=== PATIENT | female | born 1975 | race Two or more races ===

== ENCOUNTER 2020-08-17 07:50 | Day surgery (SDC) | payer OTHER ==
[~2020-08-17 07:50] MED LIST: ABANEU-SL TABL1 EACH SL; CITRATE OF MAG296 ML; INTEGRA F CAPS1 EACH PO; INTESTINEX680 M1 PO; MAXFE CAPLET1 EACH PO; PERCOCET 5-3251 EACH PO; PRILOSEC OTC20 MG PO; PROTONIX40 MG PO
[2020-08-17] MEDS ORDERED: PERCOCET 5-3251 EACH PO (10:06)
== END 2020-08-17 12:25 | disposition home or self-care (01) ==
LOC: CIR.AMB 07:50
PROVIDERS: ATTEND Surgery
DX: C18.5 Malignant neoplasm of splenic flexure (principal); Z20.828 Contact with and (suspected) exposure to other viral communicable diseases
CPT/HCPCS: 36561; C1751

== ENCOUNTER 2020-09-01 21:20 | Emergency (ER) | payer OTHER ==
[~2020-09-01] VITALS: Ht 157.5 cm; Wt 70.3 kg
[2020-09-01] MEDS ORDERED: MYLANTA (22:08)
[2020-09-01] MEDS ORDERED: GAS X (22:08)
[2020-09-02] MEDS ORDERED: DICY20TA PO (05:11)
[2020-09-02] MEDS ORDERED: FAMOTIDINE20 MG PO (05:11)
== END 2020-09-02 05:22 | disposition home or self-care (01) ==
LOC: ER 21:20
DX: K29.70 Gastritis, unspecified, without bleeding (principal); R10.13 Epigastric pain

== ENCOUNTER 2020-09-19 19:21 | Emergency (ER) | payer OTHER ==
[~2020-09-19] VITALS: Ht 157.5 cm; Wt 68.9 kg
[~2020-09-19 19:21] MED LIST changes: +DICY20TA PO; +FAMOTIDINE20 MG PO; +GAS X; +MYLANTA
[2020-09-19] MEDS ORDERED: TYLENOR (19:35)
== END 2020-09-20 00:26 | disposition home or self-care (01) ==
LOC: ER 19:21
DX: R22.1 Localized swelling, mass and lump, neck (principal); M54.2 Cervicalgia
CPT/HCPCS: 70491; Q9965

== ENCOUNTER 2020-09-21 07:23 | Outpatient (CLI) | payer OTHER ==
[~2020-09-21 07:23] MED LIST changes: +TYLENOR
[2020-09-22] MEDS ORDERED: ELIQUIS5 MG (00:07)
== END 2020-09-21 07:35 | disposition home or self-care (01) ==
LOC: NUCLEAR 07:23
PROVIDERS: ATTEND Surgery
DX: I87.2 Venous insufficiency (chronic) (peripheral) (principal); M79.622 Pain in left upper arm

== ENCOUNTER 2020-09-21 23:31 | Inpatient (IN) | payer OTHER ==
[~2020-09-21] VITALS: Ht 157.5 cm; Wt 70.3 kg
--- NOTE | 2020-09-21 23:52 | NUR ---
PACIENTE ALERTA Y ORIENTADA X3. REFIERE VENIR POR DOLOR EN MINERVA Y INFLAMACION DESDE HACE MATT SEMANA. REFIERE SE REALIZO UN ESTUDIO EN DONDE LE INDICARON QUE TENIA TROMBOSIS DE LA VENA YUGULAR IZQUIERDA. LA PACIENTE REFIERE ESTA EN TRATAMIENTO DE ELIQUIS PO ROMAIN EL DOLOR Y LA INFLAMACION DEL MINERVA QUE ESTA EN AUMENTO. SE PRESENTO PACIENTE A DR. AMOR. SE UBICA EN AREA DE OBSERVACION PARA EVALUACION MEDICA.
[2020-09-22] MEDS ORDERED: ELIQUIS5 MG (00:07)
--- NOTE | 2020-09-22 01:13 | NUR ---
SE RECIBE FEMINA ALERTA Y ORIENTADA POR JOHN ESFERAS, EN MIRLADNE CON BARANDAS SEGURAS Y ELEVADAS. SE ORIENTA SOBRE TRATAMIENTO. SE KEILA MUESTRAS DE LABORATORIO ORDENADAS. SE CANALIZA CON AREA DE VENOPUNCION MANUEL DE EDEMA O ENROJECIMIENTO. SE ADMINISTRA IVF Y MEDICAMENTO ORDENADO. SE MANTIENE EN OBSERVACION POR CAMBIOS.
[2020-09-26] MEDS ORDERED: NORFLEX100MG PO (09:09)
== END 2020-09-26 10:58 | disposition home or self-care (01) | DRG 316 ==
LOC: ER 23:31 → SURG 09-22 08:54
PROVIDERS: ADMIT Surgery; ATTEND Surgery
DX: T82.868A Thrombosis due to vascular prosthetic devices, implants and grafts, initial encounter (principal); Z20.828 Contact with and (suspected) exposure to other viral communicable diseases; D50.0 Iron deficiency anemia secondary to blood loss (chronic)

== ENCOUNTER 2024-01-05 10:31 | Outpatient (CLI) | payer OTHER ==
[~2024-01-05 10:31] MED LIST changes: +ELIQUIS5 MG; +NORFLEX100MG PO
== END 2024-01-05 10:40 | disposition home or self-care (01) ==
LOC: SONOGRAMA 10:31
PROVIDERS: ATTEND Internal Medicine Hematology & Oncology
DX: N83.202 Unspecified ovarian cyst, left side (principal); Z88.0 Allergy status to penicillin; Z88.6 Allergy status to analgesic agent